=== PATIENT | female | born 1995 | race Caucasian/White ===

== ENCOUNTER 2018-08-15 12:25 | Emergency (ER) | payer OTHER, SELFPAY ==
[2018-08-15] MEDS ORDERED: Ibuprofen 800 MG TAB ONE (12:59)
[2018-08-15 13:05] LABS: #Basophils 0.1 thou/uL (0.0-0.2); #Lymphocytes 0.9 thou/uL (1.20-3.40); #Monocytes 0.9 thou/uL (0.11-0.59); %Lymphocytes 6.6 % (28.0-48.0); %Monocytes 6.1 % (0.0-4.0); %Neutrophils 86.3 % (31.0-61.0); Hemoglobin 14.4 g/dL (12.0-16.0); Mean Corpuscular HGB CONC 32.7 g/dL (32.0-36.0); Mean Corpuscular Hemoglobin 30.7 pg (25.0-35.0); Mean Platelet Volume 7.7 fL (7.4-10.4); Platelet Count 182 thou/uL (130-400); RBC Distribution Width 11.6 % (11.5-14.5); Red Blood Cell (RBC) Count 4.67 mill/uL (4.00-5.20)
[2018-08-15 13:21] LABS: Anion Gap 16 mmol/L (10-20); BUN (Urea Nitrogen) 13 mg/dL (7.0-18.7); CK (CPK) 53 U/L (29-168); Calc. Creatinine Clearance 0 mL/min (70-130); Calcium 9.4 mg/dL (7.8-10.44); Carbon Dioxide 22 mmol/L (22-29); Chloride 106 mmol/L (98-107); Estimated GFR-MDRD Greater than 90; Glucose 128 mg/dL (70-105); Potassium 3.9 mmol/L (3.5-5.1); Sodium 140 mmol/L (136-145)
== END 2018-08-15 13:43 | disposition home or self-care (01) ==
LOC: BURERS 12:25
DX: N61.0 Mastitis without abscess (principal)
CPT/HCPCS: 36415; 80048; 82550; 85025; 99283

== ENCOUNTER 2022-04-14 21:25 | Emergency (ER) | payer OTHER | END 2022-04-14 22:11 | disposition home or self-care (01) | LOC: BURERS 21:25 | DX: S93.401A Sprain of unspecified ligament of right ankle, initial encounter (principal); W22.8XXA Striking against or struck by other objects, initial encounter ==

== ENCOUNTER 2022-05-16 20:39 | Emergency (ER) | payer OTHER ==
[2022-05-16] MEDS ORDERED: HYDROcodone/Acetaminophen 5/325 mg Tablet ONE (21:32)
== END 2022-05-16 21:57 | disposition home or self-care (01) ==
LOC: BURERS 20:39
DX: S93.401A Sprain of unspecified ligament of right ankle, initial encounter (principal); X50.1XXA Overexertion from prolonged static or awkward postures, initial encounter